=== PATIENT | male | born 1980 | race Caucasian/White ===

== ENCOUNTER → 2022-08-03 17:06 | Outpatient (CLI) | payer BC, SELFPAY ==
--- NOTE | 2022-08-08 18:26 | PC.NURSE ---
RESP CARE NOTE paged care information associate for Dr Tobar at @[id number] on 08/08 to report urgent [facility] report.
--- NOTE | 2022-08-08 18:42 | PC.NURSE ---
RESP CARE NOTE talked to Dr Tariq who is head of conservation for Dr Tobar to report the findings from the urgent rhythm report @[id number] on 08/08/22
== END ==
PROVIDERS: PCP Internal Medicine Adolescent Medicine; Visit Provider Internal Medicine Adolescent Medicine
DX: R00.2 Palpitations (principal)
CPT/HCPCS: 93270

== ENCOUNTER 2024-10-15 16:06 | Outpatient (CLI) | payer BC, SELFPAY | END 2024-10-15 23:59 | disposition home or self-care (01) | LOC: RT 16:07 | PROVIDERS: PCP Internal Medicine Adolescent Medicine; Visit Provider Physician Assistant | DX: R00.2 Palpitations (principal); Z86.79 Personal history of other diseases of the circulatory system | CPT/HCPCS: 93270 ==